=== PATIENT | female | born 1940 | race Caucasian/White ===

== ENCOUNTER 2017-11-10 11:52 | Observation (INO) ==
[2017-11-10] MEDS ORDERED: METHYLPREDNISOLONE SOD SUCC 125mg/2ml INJECTION IVP ONE (12:07)
[2017-11-10] MEDS ORDERED: ALBUTEROL/IPRATROPIUM 2.5mg-0.5mg/3ml NEB IH ONE (12:07)
--- OUTSIDE RECORDS SUMMARY | 2017-11-10 12:10 | External Medical Summary | Referral Summary ---
:1940 Author Organization [facility] Address [address] [place] [address] [place] [phone] Care Team Providers Name Role Phone Denise Ray Primary Care Physician Encounter VC Date(s): 02/25/15 - 02/25/15 [facility] [address] [place] [phone] Discharge Diagnosis: COPD bronchitis Discharge Diagnosis: Cough Discharge Disposition: 01-Home or Self Care Attending Physician: Amanda Westfall APRN Admitting Physician: Amanda Westfall APRN Vital Signs Most recent to oldest [Reference Range]: 1 Temperature Tympanic [36.6-38.1 degC] 36.5 degC *LOW* (02/25/15 11:31 AM) Peripheral Pulse Rate [60-100 bpm] 97 bpm (02/25/15 11:31 AM) Blood Pressure [90-140/60-90 mmHg] 144/82 mmHg *HI* (02/25/15 11:31 AM) SpO2 93 % (02/25/15 11:31 AM) Problem List Condition Effective Dates Status Health Status Informant Hypertension(Confirmed) Active Asthma, mild persistent(Confirmed) Active Tobacco user(Confirmed) Active patient Allergies, Adverse Reactions, Alerts No Known Medication Allergies Medications lisinopril 10 mg oral tablet 10 mg 1 tabs, Oral, Daily, # 90 tabs, 1 Refill(s), Pharmacy: [facility] # [id number], 1 tabs Oral Daily Start Date: 02/25/15 Status: OrderedProAir HFA 90 mcg/inh inhalation aerosol 2 puffs, Inhalation, q4hr, as needed for wheezing, # 8.5 g, 2 Refill(s), Pharmacy: [facility] #[id number] Start Date: 02/25/15 Status: Ordered Results No data available for this section Immunizations Vaccine Date Refusal Reason influenza virus vaccine, live 06/01/12 Procedures Procedure Date Related Diagnosis Body Site Cholecystectomy Social History Social History Type Response Smoking Status Former smoker; Type: Cigarettes; Number of years: 50; Ready to change: Yes Assessment and Plan Extracted from: Title: Ambulatory Patient Education Author: Amanda Westfall LUMBER SCALER Date: Family Medicine Bronchitis Bronchitis is swelling (inflammation ) of the air tubes leading to your lungs ( bronchi ). This causes mucus and a cough. If the swelling gets bad, you may have trouble breathing. HOME CARE Rest. Drink enough fluids to keep your pee (urine ) clear or pale yellow ( unless you have a condition where you have to watch how much you drink). Only take medicine as told by your doctor. If you were given antibiotic medicines, finish them even if you start to feel better. Avoid smoke, irritating chemicals, and strong smells. These make the problem worse. Quit smoking if you smoke. This helps your lungs heal faster. Use a cool mist humidifier. Change the water in the humidifier every day. You can also sit in the bathroom with hot shower running for 510 minutes. Keep the door closed. See your health care provider as told. Wash your hands often. GET HELP IF: Your problems do not get better after 1 week. GET HELP RIGHT AWAY IF: Your fever gets worse. You have chills. Your chest hurts. Your problems breathing get worse. You have blood in your mucus. You pass out (faint ). You feel lightheaded. You have a bad headache. You throw up (vomit ) again and again. MAKE SURE YOU: Understand these instructions. Will watch your condition. Will get help right away if you are not doing well or get worse. Document Released: 02/07/2009 Document Revised: 06/12/2014 Document Reviewed: 04/16/2014 Exit[employer] Patient Information 2014 [employer]. No follow up information was provided. Extracted from: Title: Office Visit Note Author: Amanda Westfall LUMBER SCALER Date: 02/25/15 Assessment/Plan 1.COPD bronchitis zpack, albuterol prn. let us know if s/s persist or worsen. Cough Ordered: CBC w/ Differential Orders: albuterol, 2 puffs, Inhalation, q4hr, as needed for wheezing, # 8.5 g , 2 Refill(s), Pharmacy: [facility] #[id number] azithromycin, 1 packets, Oral, Daily, as directed on package labeling, X 5 days, # 6 tabs, 0 Refill(s), Pharmacy: [facility] #[id number], 1 packets Oral Daily,x5 days,Instr:as directed on package labeling lisinopril, 10 mg 1 tabs, Oral, Daily, # 90 tabs, 1 Refill(s), Pharmacy: [facility] #[id number], 1 tabs Oral Daily
--- OUTSIDE RECORDS SUMMARY | 2017-11-10 12:10 | External Medical Summary | Referral Summary ---
:1940 Author Organization [facility] Address [address] [place] [address] [place] [phone] Care Team Providers Name Role Phone Anna Morrison Primary Care Physician Encounter VC Date(s): 07/13/16 - 07/13/16 [facility] [address] [place] [phone] [place] Discharge Diagnosis: Seasonal allergies Discharge Diagnosis: Asthma, mild persistent Discharge Disposition: 01-Home or Self Care Attending Physician: Anna Morrison DO Admitting Physician: Anna Morrison DO Vital Signs Most recent to oldest [Reference Range]: 1 Temperature Tympanic [36.6-38.1 degC] 36.6 degC (07/13/16 10:59 AM) Peripheral Pulse Rate [60-100 bpm] 86 bpm (07/13/16 10:59 AM) Blood Pressure [90-140/60-90 mmHg] 160/100 mmHg *HI* (07/13/16 10:59 AM) SpO2 94 % (07/13/16 10:59 AM) Problem List Condition Effective Dates Status Health Status Informant Overactive bladder(Confirmed) Active Hypertension(Confirmed) Active Asthma, mild persistent(Confirmed) Active Tobacco user(Confirmed) Active patient Allergies, Adverse Reactions, Alerts No Known Medication Allergies Medications Breo Ellipta 200 mcg-25 mcg/inh inhalation powder 1 puffs, Inhalation, Daily, # 3 Each, 1 Refill(s), [facility] Start Date: 12/01/15 Status: Orderedlisinopril 10 mg oral tablet See Instructions, TAKE ONE TABLET BY MOUTH DAILY, # 90 tabs, eRx: [facility] #[id number], TAKE ONETABLET BY MOUTH DAILY Start Date: 06/21/16 Status: OrderedProAir HFA 90 mcg/inh inhalation aerosol 2 puffs, Inhalation, q4hr, as needed for wheezing, # 8.5 g, 2 Refill(s), Pharmacy: [facility] #[id number] Start Date: 10/22/15 Status: Ordered Results Hematology Most recent to oldest [Reference Range]: 1 WBC [4.8-10.8 10*3/uL] 8.8 10*3/uL (07/13/16 11:26 AM) RBC [4.00-5.20] 4.69 (07/13/16 11:26 AM) Hgb [12.0-16.0 gm/dL] 14.5 gm/dL (07/13/16 11:26 AM) Hct [37.0-47.0 %] 45.0 % (07/13/16 11:26 AM) MCV [82.0-99.0 fL] 95.9 fL (07/13/16 11:26 AM) MCH [27.0-32.0 pg] 30.9 pg (07/13/16 11:26 AM) MCHC [32.0-36.0 gm/dL] 32.2 gm/dL (07/13/16 11:26 AM) RDW [11.5-14.5 %] 13.7 % (07/13/16 11:26 AM) Platelet [150-400 10*3/uL] 251 10*3/uL (07/13/16 11:26 AM) MPV [8.8-14.8 fL] 11.8 fL (07/13/16 11:26 AM) Immature Granulocytes [0.0-1.0 %] 0.2 % (07/13/16 11:26 AM) Neutrophils [51-75 %] 68 % (07/13/16 11:26 AM) Lymphocytes [20-46 %] 18 % *LOW* (07/13/16 11:26 AM) Monocytes [4-11 %] 10 % (07/13/16 11:26 AM) Eosinophils [0-4 %] 3 % (07/13/16 11:26 AM) Basophils [0-2 %] 1 % (07/13/16 11:26 AM) Neutro Absolute [1.90-7.00 10*3] 6.01 10*3 (07/13/16 11:26 AM) Lymph Absolute [0.80-3.30 10*3] 1.58 10*3 (07/13/16 11:26 AM) [place] Absolute [0.30-1.00 10*3] 0.89 10*3 (07/13/16 11:26 AM) Eos Absolute [0.00-0.50 10*3] 0.25 10*3 (07/13/16 11:26 AM) Baso Absolute [0.00-0.20 10*3] 0.06 10*3 (07/13/16 11:26 AM) Chemistry Most recent to oldest [Reference Range]: 1 Sodium Lvl [135-144 mEq/L] 142 mEq/L (07/13/16 11:26 AM) Potassium Lvl [3.5-5.2 mEq/L] 4.5 mEq/L (07/13/16 11:26 AM) Chloride [99-111 mEq/L] 106 mEq/L (07/13/16 11:26 AM) CO2 [22-31 mEq/L] 30 mEq/L (07/13/16 11:26 AM) AGAP [3-20] 6 (07/13/16 11:26 AM) BUN [10-20 mg/dL] 16 mg/dL (07/13/16 11:26 AM) Glucose Lvl [70-99 mg/dL] 75 mg/dL (07/13/16 11:26 AM) Creatinine Lvl [0.57-1.11 mg/dL] 0.75 mg/dL (07/13/16 11:26 AM) eGFR [>60 mL/min] >60 mL/min 1 (07/13/16 11:26 AM) Calcium Lvl [8.9-10.5 mg/dL] 9.0 mg/dL (07/13/16 11:26 AM) 1Result Comment: Multiply eGFR results by 1.21 for race. Immunizations Vaccine Date Refusal Reason influenza virus vaccine, inactivated 07/13/16 influenza virus vaccine, live 06/01/12 pneumococcal 13-valent conjugate vaccine 10/22/15 pneumococcal 23-polyvalent vaccine 09/27/11 pneumococcal 23-polyvalent vaccine 06/30/06 Procedures Procedure Date Related Diagnosis Body Site Cholecystectomy 2013 Social History Social History Type Response Smoking Status Former smoker; Type: Cigarettes; Number of years: 50; Ready to change: Yes Assessment and Plan Extracted from: Title: Office Visit Note Author: Anna Morrison DO Date: 07/13/16 Assessment/Plan Asthma, mild persistent Stable at this time Ordered: Office Visit Level 4 Est 05799 Hypertension BMP and CBC today,patient should return to clinic in 6 months if still living in [place]. Ordered: Basic Metabolic Panel CBC w/ Differential Office Visit Level 4 Est 32285 Need for influenza vaccination Flu shot provided today. Ordered: Office Visit Level 4 Est 41086 Seasonal allergies Stable at this time, patient should return to clinic if worsening symptoms. Ordered: Office Visit Level 4 Est 94551
--- OUTSIDE RECORDS SUMMARY | 2017-11-10 12:10 | External Medical Summary | Referral Summary ---
:1940 Author [facility] Address [address] [place] [address] [place] [phone] Care Team Providers Name Role Phone Anna Morrison Primary Care Physician Encounter VC Date(s): 10/22/15 - 10/22/15 [facility] [address] [place] [phone] [place] Discharge Disposition: 01-Home or Self Care Attending Physician: Deacon Van APRN Admitting Physician: Deacon Van APRN Vital Signs Most recent to oldest [Reference Range]: 1 Temperature Tympanic [36.6-38.1 degC] 36.3 degC *LOW* (10/22/15 9:33 AM) Peripheral Pulse Rate [60-100 bpm] 96 bpm (10/22/15 9:33 AM) Respiratory Rate [14-20 br/min] 21 br/min *HI* (10/22/15 9:33 AM) Blood Pressure [90-140/60-90 mmHg] 168/84 mmHg *HI* (10/22/15 9:33 AM) SpO2 92 % (10/22/15 9:33 AM) Problem List Condition Effective Dates Status Health Status Informant Overactive bladder(Confirmed) Active Hypertension(Confirmed) Active Asthma, mild persistent(Confirmed) Active Tobacco user(Confirmed) Active patient Allergies, Adverse Reactions, Alerts No Known Medication Allergies Medications lisinopril 10 mg oral tablet 10 mg 1 tabs, Oral, Daily, # 90 tabs, 0 Refill(s), Pharmacy: [facility] # [id number], 1 tabs Oral Daily Start Date: 10/22/15 Status: OrderedProAir HFA 90 mcg/inh inhalation aerosol 2 puffs, Inhalation, q4hr, as needed for wheezing, # 8.5 g, 2 Refill(s), Pharmacy: [facility] #[id number] Start Date: 10/22/15 Status: Ordered Results No data available for this section Immunizations Vaccine Date Refusal Reason influenza virus vaccine, live 06/01/12 pneumococcal 13-valent conjugate vaccine 10/22/15 pneumococcal 23-polyvalent vaccine 09/27/11 pneumococcal 23-polyvalent vaccine 06/30/06 Procedures Procedure Date Related Diagnosis Body Site Cholecystectomy 2012 Social History Social History Type Response Smoking Status Former smoker; Type: Cigarettes; Number of years: 50; Ready to change: Yes Assessment and Plan No data available for this section
--- OUTSIDE RECORDS SUMMARY | 2017-11-10 12:10 | External Medical Summary | Referral Summary ---
:1940 Author [facility] Address [address] [place] [address] [place] [address] Care Team Providers Name Role Phone Anna Morrison Primary Care Physician Encounter VC Date(s): 10/13/16 - 10/13/16 [facility] [address] [place] [phone] [place] Discharge Diagnosis: Acute respiratory failure with hypoxia Discharge Disposition: 01-Home or Self Care Attending Physician: Anna Morrison DO Admitting Physician: Anna Morrison DO Vital Signs Most recent to oldest [Reference Range]: 1 Temperature Tympanic [36.6-38.1 degC] 36.4 degC *LOW* (10/13/16 3:53 PM) Peripheral Pulse Rate [60-100 bpm] 112 bpm *HI* (10/13/16 3:53 PM) Blood Pressure [90-140/60-90 mmHg] 140/80 mmHg (10/13/16 3:53 PM) Problem List Condition Effective Dates Status Health Status Informant Overactive bladder(Confirmed) Active Hypertension(Confirmed) Active Asthma, mild persistent(Confirmed) Active Tobacco user(Confirmed) Active patient Allergies, Adverse Reactions, Alerts No Known Medication Allergies Medications DuoNeb 0.5 mg-2.5 mg/3 mL inhalation solution 3 mL, NEB, q4hr, as needed for shortness of breath or wheezing, # 180 mL, 0 Refill(s), Pharmacy: [facility] #[id number] Start Date: 10/04/16 Status: Orderedlisinopril 10 mg oral tablet See Instructions, TAKE ONE TABLET BY MOUTH DAILY, # 90 tabs, eRx: [facility] #[id number], TAKE ONETABLET BY MOUTH DAILY Start Date: 09/22/16 Status: OrderedProAir HFA 90 mcg/inh inhalation aerosol See Instructions, INHALE TWO PUFFS BY MOUTH EVERY 4 HOURS NEEDED, # 8.5 unknown unit, 1 Refill(s), eRx: [facility] #[id number], INHALE TWO PUFFS BY MOUTH EVERY 4 HOURS NEEDED Start Date: 09/30/16 Status: Ordered Results No data available for this section Immunizations Given and Recorded Vaccine Date Status Refusal Reason influenza virus vaccine, inactivated 07/13/16 Given influenza virus vaccine, live 06/01/12 Given pneumococcal 13-valent conjugate vaccine 10/22/15 Given pneumococcal 23-polyvalent vaccine 09/27/11 Recorded pneumococcal 23-polyvalent vaccine 06/30/06 Recorded Procedures Procedure Date Related Diagnosis Body Site Cholecystectomy 2012 Social History Social History Type Response Smoking Status Former smoker; Type: Cigarettes; Number of years: 50; Ready to change: Yes Assessment and Plan Extracted from: Title: Office Visit Note Author: Anna Morrison DO Date: 10/13/16 Assessment/Plan Acute respiratory failure with hypoxia Due to patient's respiratory failure we activated EMSto have the patient taken to the emergency department. Ordered: Office Visit Level 4 Est 56162
--- OUTSIDE RECORDS SUMMARY | 2017-11-10 12:10 | External Medical Summary | Referral Summary ---
:1940 Author Organization [facility] [address] [place] [address] Care Team Providers Name Role Phone Anna Morrison Primary Care Physician Encounter VC Date(s): 10/29/16 - 10/29/16 [facility] [address] [place] [phone] [place] Discharge Diagnosis: Dependence on supplemental oxygen when ambulating Discharge Diagnosis: Hospital discharge follow-up Discharge Diagnosis: Acute exacerbation of COPD with asthma Discharge Disposition: -Home or Self Care Attending Physician: Anna Morrison DO Admitting Physician: Anna Morrison DO Vital Signs Most recent to oldest [Reference Range]: 1 Temperature Tympanic [36.6-38.1 degC] 36.9 degC (10/29/16 8:02 AM) Peripheral Pulse Rate [60-100 bpm] 88 bpm (10/29/16 8:02 AM) Respiratory Rate [14-20 br/min] 16 br/min (10/29/16 8:02 AM) Blood Pressure [90-140/60-90 mmHg] 128/60 mmHg (10/29/16 8:02 AM) SpO2 94 % (10/29/16 8:02 AM) Problem List Condition Effective Dates Status Health Status Informant Overactive bladder(Confirmed) Active Dependence on supplemental oxygen when Active ambulating(Confirmed) Acute exacerbation of COPD with Active asthma(Confirmed) Hypertension(Confirmed) Active Asthma, mild persistent(Confirmed) Active Tobacco user(Confirmed) Active patient Allergies, Adverse Reactions, Alerts No Known Medication Allergies Medications DuoNeb 0.5 mg-2.5 mg/3 mL inhalation solution 3 mL, NEB, q4hr, as needed for shortness of breath or wheezing, # 180 mL, 0 Refill(s), Pharmacy: [facility] #[id number] Start Date: 10/04/16 Status: Orderedlisinopril 10 mg oral tablet See Instructions, TAKE ONE TABLET BY MOUTH DAILY, # 90 tabs, eRx: [facility] #[id number], TAKE ONETABLET BY MOUTH DAILY Start Date: 09/22/16 Status: OrderedProAir HFA 90 mcg/inh inhalation aerosol See Instructions, INHALE TWO PUFFS BY MOUTH EVERY 4 HOURS NEEDED, # 8.5 unknown unit, 1 Refill(s), eRx: [facility] #[id number], INHALE TWO PUFFS BY MOUTH EVERY 4 [...] Yes Assessment and Plan Extracted from: Title: TCM copd Author: Anna Morrison DO Date: 10/29/16 Assessment/Plan Acute exacerbation of COPD with asthma Ordered: [facility] 14 Day Disch 29575 Dependence on supplemental oxygen when ambulating Ordered: [facility] 14 Day Disch [address]2385 Hospital discharge follow-up Ordered: [facility] 14 Day Disch 97823 Overall patient is doing well. She is careful in public to avoid exposure to any respiratory illnesses. She continues to monitor her oxygen saturation and use her supplemental oxygen as needed.
--- OUTSIDE RECORDS SUMMARY | 2017-11-10 12:10 | External Medical Summary | Referral Summary ---
:1940 Author [facility] Address [address] [place] [address] [place] [phone] Care Team Providers Name Role Phone Anna Morrison Primary Care Physician Encounter VC Date(s): 10/04/16 - 10/04/16 [facility] [address] [place] [phone] [place] Discharge Diagnosis: Viral URI with cough Discharge Diagnosis: Acute asthma exacerbation Discharge Disposition: 01-Home or Self Care Attending Physician: Anna Morrison DO Admitting Physician: Anna Morrison DO Vital Signs Most recent to oldest [Reference Range]: 1 Temperature Tympanic [36.6-38.1 degC] 36.2 degC *LOW* (10/04/16 8:51 AM) Peripheral Pulse Rate [60-100 bpm] 94 bpm (10/04/16 8:51 AM) Blood Pressure [90-140/60-90 mmHg] 160/90 mmHg *HI* (10/04/16 8:51 AM) SpO2 94 % (10/04/16 8:51 AM) Problem List Condition Effective Dates Status Health Status Informant Overactive bladder(Confirmed) Active Hypertension(Confirmed) Active Asthma, mild persistent(Confirmed) Active Tobacco user(Confirmed) Active patient Allergies, Adverse Reactions, Alerts No Known Medication Allergies Medications Breo Ellipta 200 mcg-25 mcg/inh inhalation powder 1 puffs, Inhalation, Daily, # 3 Each, 1 Refill(s), Pharmacy: [facility] Start Date: 12/01/15 Status: OrderedDuoNeb 0.5 mg-2.5 mg/3 mL inhalation solution 3 mL, NEB, q4hr, as needed for shortness of breath or wheezing, # 180 mL, 0 Refill(s), Pharmacy: [facility] #[id number] Start Date: 10/04/16 Status: Orderedlisinopril 10 mg oral tablet See Instructions, TAKE ONE TABLET BY MOUTH DAILY, # 90 tabs, eRx: [facility] #[id number], TAKE ONETABLET BY MOUTH DAILY Start Date: 09/22/16 Status: OrderedProAir HFA 90 mcg/inh inhalation aerosol See Instructions, INHALE TWO PUFFS BY MOUTH EVERY 4 HOURS NEEDED, # 8.5 unknown unit, 1 Refill(s), eRx: [facility] #[id number], INHALE TWO PUFFS BY MOUTH EVERY 4 [...] Yes Assessment and Plan Extracted from: Title: ACUTE asthma exac Author: Anna Morrison DO Date: 10/04/16 Assessment/Plan Acute asthma exacerbation Ordered: Office Visit Level 4 Est 64981 Cough Viral URI with cough Ordered: Office Visit Level 4 Est 22583 Chest x-ray shows inflammatory changes, lung exam is improved after nebulizer treatment with DuoNeb. We will provide patient with nebulizer and some DuoNeb solution as well as a Solu-Medrol injectio n. Patient should return to clinic if not improving. Otherwise patient should continue supportive care.
--- OUTSIDE RECORDS SUMMARY | 2017-11-10 12:11 | External Medical Summary | Referral Summary ---
:1940 Author [facility] [place] Address [address] [place] [address] [place] [phone] Care Team Providers Name Role Phone Anna Morrison Primary Care Physician Encounter VC Date(s): 11/26/15 - 11/26/15 [facility] [address] [place] [phone] [place] Discharge Disposition: 01-Home or Self Care Attending Physician: Deacon Van APRN Admitting Physician: Deacon Van APRN Vital Signs Most recent to oldest [Reference Range]: 1 Temperature Tympanic [36.6-38.1 degC] 36.2 degC *LOW* (11/26/15 1:16 PM) Peripheral Pulse Rate [60-100 bpm] 100 bpm (11/26/15 1:16 PM) Respiratory Rate [14-20 br/min] 20 br/min (11/26/15 1:16 PM) Blood Pressure [90-140/60-90 mmHg] 138/98 mmHg (11/26/15 1:16 PM) SpO2 92 % (11/26/15 1:16 PM) Problem List Condition Effective Dates Status Health Status Informant Overactive bladder(Confirmed) Active Hypertension(Confirmed) Active Asthma, mild persistent(Confirmed) Active Tobacco user(Confirmed) Active patient Allergies, Adverse Reactions, Alerts No Known Medication Allergies Medications Levaquin 500 mg oral tablet 500 mg 1 tabs, Oral, q24hr, X 7 days, # 7 tabs, 0 Refill(s), Pharmacy: [facility] #[id number], 1 tabs Oral q24hr,x7 days Start Date: 11/26/15 Stop Date: 12/03/15 Status: Orderedlisinopril 10 mg oral tablet 10 mg 1 tabs, Oral, Daily, # 90 tabs, 0 Refill(s), Pharmacy: [facility] # [id number], 1 tabs Oral Daily Start Date: 10/22/15 Status: OrderedpredniSONE 20 mg oral tablet See Instructions, 2 tabs PO daily for 4 days then 1 tab PO daily for 4 days, # 12 tabs, 0 Refill(s),Pharmacy: [facility] #[id number], 2 tabs PO daily for 4 days then 1 tab PO daily for 4 days Start Date: 11/26/15 Stop Date: 12/03/15 Status: OrderedProAir HFA 90 mcg/inh inhalation aerosol 2 puffs, Inhalation, q4hr, as needed for wheezing, # 8.5 g, 2 Refill(s), Pharmacy: [facility] #[id number] Start Date: 10/22/15 Status: Ordered Results No [...]
--- OUTSIDE RECORDS SUMMARY | 2017-11-10 12:11 | External Medical Summary | Referral Summary ---
:1940 Author Organization [facility] Address [address] [place] [address] E[place] Bec[place] [id number] Care Team Providers Name Role Phone Denise Ray Primary Care Physician Encounter VC Date(s): 01/31/15 - 01/31/15 [facility] [place] [phone] Discharge Diagnosis: Neck pain Discharge Diagnosis: HTN (hypertension) Discharge Diagnosis: Back pain Discharge Disposition: 01-Home or Self Care Attending Physician: Amanda Westfall APRN Admitting Physician: Amanda Westfall APRN Vital Signs Most recent to oldest [Reference Range]: 1 Temperature Tympanic [36.6-38.1 degC] 36.7 degC (01/31/15 1:15 PM) Peripheral Pulse Rate [60-100 bpm] 80 bpm (01/31/15 1:15 PM) Respiratory Rate [14-20 br/min] 17 br/min (01/31/15 1:15 PM) Blood Pressure [90-140/60-90 mmHg] 190/70 mmHg *HI* (01/31/15 1:15 PM) Problem List Condition Effective Dates Status Health Status Informant Hypertension(Confirmed) Active Asthma, mild persistent(Confirmed) Active Tobacco user(Confirmed) Active patient Allergies, Adverse Reactions, Alerts No Known Medication Allergies Medications lisinopril 10 mg oral tablet 10 mg 1 tabs, Oral, Daily, # 90 tabs, 1 Refill(s), Pharmacy: [facility] # [id number], 1 tabs Oral Daily Start Date: 02/25/15 Status: OrderedProAir HFA 90 mcg/inh inhalation aerosol 2 puffs, Inhalation, q4hr, as needed for wheezing, # 8.5 g, 2 Refill(s), Pharmacy: [facility] #[id number] Start Date: 02/25/15 Status: Ordered Results Hematology Most recent to oldest [Reference Range]: 1 WBC [4.8-10.8 10*3/uL] 8.8 10*3/uL (01/31/15 2:05 PM) RBC [4.00-5.20 10*6/uL] 4.45 10*6/uL (01/31/15 2:05 PM) Hgb [12.0-16.0 gm/dL] 13.7 gm/dL (01/31/15 2:05 PM) Hct [37.0-47.0 %] 42.4 % (01/31/15 2:05 PM) MCV [82.0-99.0 fL] 95.3 fL (01/31/15 2:05 PM) MCH [27.0-32.0 pg] 30.8 pg (01/31/15 2:05 PM) MCHC [32.0-36.0 gm/dL] 32.3 gm/dL (01/31/15 2:05 PM) RDW [11.5-14.5 %] 13.1 % (01/31/15 2:05 PM) Platelet [150-400 10*3/uL] 287 10*3/uL (01/31/15 2:05 PM) MPV [8.8-14.8 fL] 11.2 fL (01/31/15 2:05 PM) Immature Granulocytes [0.0-1.0 %] 0.3 % (01/31/15 2:05 PM) Neutrophils [51-75 %] 65 % (01/31/15 2:05 PM) Lymphocytes [20-46 %] 21 % (01/31/15 2:05 PM) Monocytes [4-11 %] 11 % (01/31/15 2:05 PM) Eosinophils [0-4 %] 2 % (01/31/15 2:05 PM) Basophils [0-2 %] 1 % (01/31/15 2:05 PM) Neutro Absolute [1.90-7.00 10*3] 5.69 10*3 (01/31/15 2:05 PM) Lymph Absolute [0.80-3.30 10*3] 1.80 10*3 (01/31/15 2:05 PM) Beckham Absolute [0.30-1.00 10*3] 0.97 10*3 (01/31/15 2:05 PM) Eos Absolute [0.00-0.50 10*3] 0.21 10*3 (01/31/15 2:05 PM) Baso Absolute [0.00-0.20 10*3] 0.07 10*3 (01/31/15 2:05 PM) Chemistry Most recent to oldest [Reference Range]: 1 Sodium Lvl [135-144 mEq/L] 140 mEq/L (01/31/15 2:05 PM) Potassium Lvl [3.5-5.2 mEq/L] 4.2 mEq/L (01/31/15 2:05 PM) Chloride [99-111 mEq/L] 108 mEq/L (01/31/15 2:05 PM) CO2 [22-31 mEq/L] 23 mEq/L (01/31/15 2:05 PM) AGAP [3-20] 9 (01/31/15 2:05 PM) BUN [10-20 mg/dL] 11 mg/dL (01/31/15 2:05 PM) Glucose Lvl [70-99 mg/dL] 100 mg/dL *HI* (01/31/15 2:05 PM) Creatinine Lvl [0.57-1.11 mg/dL] 0.72 mg/dL (01/31/15 2:05 PM) eGFR [>60 mL/min] >60 mL/min 1 (01/31/15 2:05 PM) Calcium Lvl [8.9-10.5 mg/dL] 9.6 mg/dL (01/31/15 2:05 PM) Albumin Lvl [3.4-4.8 gm/dL] 4.1 gm/dL (01/31/15 2:05 PM) Total Protein [6.2-8.1 gm/dL] 6.4 gm/dL (01/31/15 2:05 PM) Globulin [1.8-4.0 gm/dL] 2.3 gm/dL (01/31/15 2:05 PM) ALT [0-55 U/L] 13 U/L (01/31/15 2:05 PM) AST [5-34 U/L] 14 U/L (01/31/15 2:05 PM) Alk Phos [40-150 U/L] 135 U/L (01/31/15 2:05 PM) Bili Total [0.2-1.2 mg/dL] 0.3 mg/dL (01/31/15 2:05 PM) 1Result Comment: Multiply eGFR results by 1.21 for race. Immunizations Vaccine Date Refusal Reason influenza virus vaccine, live 06/01/12 Procedures Procedure Date Related Diagnosis Body Site Cholecystectomy Social History Social History Type Response Smoking Status Former smoker; Type: Cigarettes; Number of years: 50; Ready to change: Yes Assessment and Plan Extracted from: Title: Ambulatory Patient Education Author: Amanda Westfall APRN Date: Family Medicine Hypertension Hypertension is another name for high blood pressure. High blood pressure may mean that your heart needs to work harder to pump blood. Blood pressure consists of two numbers, which includes a higher number over a lower number ( example: 110/72). HOME CARE Make lifestyle changes as told by your doctor. This may include weight loss and exercise. Take your blood pressure medicine every day. Limit how much salt you use. Stop smoking if you smoke. Do not use drugs. Talk to your doctor if you are using decongestants or control pills. These medicines might make blood pressure higher. Females should not drink more than 1 alcoholic drink per day. Males should not drink more than 2 alcoholic drinks per day. See your doctor as told. GET HELP RIGHT AWAY IF: You have a blood pressure reading with a top number of 180 or higher. You get a very bad headache. You get blurred or changing vision. You feel confused. You feel weak, numb, or faint. You get chest or belly (abdominal ) pain. You throw up (vomit ). You cannot breathe very well. MAKE SURE YOU: Understand these instructions. Will watch your condition. Will get help right away if you are not doing well or get worse. Document Released: 02/07/2009 Document Revised: 11/13/2012 Document Reviewed: 02/07/2009 [facility] Patient Information 2014 [employer] [facility]. No follow up information was provided. Extracted from: Title: Office Visit Note Author: Amanda Westfall APRN Date: 01/31/15 Assessment/Plan Back pain we will call you with results. Ordered: XR Spine Lumbosacral Minimum 4 Views HTN (hypertension) start lisinopril 10mg daily. rtc in 1 mo. Ordered: CBC w/ Differential Comprehensive Metabolic Panel Neck pain Ordered: XR Spine Cervical Minimum 4 Views Orders: lisinopril, 10 mg 1 tabs, Oral, Daily, # 30 tabs, 0 Refill(s), Pharmacy: [facility] #[id number], 1 tabs Oral Daily
--- OUTSIDE RECORDS SUMMARY | 2017-11-10 12:11 | External Medical Summary | Referral Summary ---
:1940 [facility] Address [address] [place] [address] [place] [id number] Care Team Providers Name Role Phone Denise Ray Primary Care Physician Encounter VC Date(s): 07/09/15 - 07/09/15 [facility] [place] [phone] [place] Discharge Diagnosis: Hypertension Discharge Diagnosis: Asthma, mild persistent Discharge Disposition: 01-Home or Self Care Attending Physician: Anna Morrison DO Admitting Physician: Anna Morrison DO Vital Signs Most recent to oldest [Reference Range]: 1 Temperature Tympanic [36.6-38.1 degC] 36.8 degC (07/09/15 9:43 AM) Peripheral Pulse Rate [60-100 bpm] 101 bpm *HI* (07/09/15 9:43 AM) Respiratory Rate [14-20 br/min] 17 br/min (07/09/15 9:43 AM) Blood Pressure [90-140/60-90 mmHg] 148/80 mmHg *HI* (07/09/15 9:43 AM) SpO2 93 % (07/09/15 9:43 AM) Problem List Condition Effective Dates Status Health Status Informant Hypertension(Confirmed) Active Asthma, mild persistent(Confirmed) Active Tobacco user(Confirmed) Active patient Allergies, Adverse Reactions, Alerts No Known Medication Allergies Medications lisinopril 10 mg oral tablet 10 mg 1 tabs, Oral, Daily, # 90 tabs, 1 Refill(s), Pharmacy: [facility] # [id number], 1 tabs Oral Daily Start Date: 02/25/15 Status: OrderedProAir HFA 90 mcg/inh inhalation aerosol 2 puffs, Inhalation, q4hr, as needed for wheezing, # 8.5 g, 2 Refill(s), Pharmacy: [facility] #[id number] Start Date: 02/25/15 Status: Ordered Results No [...] Visit Note Author: Anna Morrison DO Date: 07/09/15 Assessment/Plan Asthma, mild persistent Well-controlled with rescue inhaler. Return to clinic 6 months. Ordered: Office Visit Level 4 Est 68100 Hypertension Well-controlled according to home readings. Return to clinic 6 months. We'll do labs at that time. Ordered: Office Visit Level 4 Est 12132
--- NOTE | 2017-11-10 12:14 | Emergency Department Report ---
Asthma HPI - General Stated Complaint: soa Time Seen by Provider: 11/10/17 12:00 Source: patient, family, RN notes reviewed, old records reviewed Mode of arrival: ambulatory Limitations: no limitations - History of Present Illness HPI Narrative: 77yo woman presents to the ER for evaluation of dyspnea. Pt developed URI sx 2 week ago; has gotten progressively dyspneic ever since. Has been using her home albuterol nebs > q4h without relief. Presents to the ER on 5L by [place] with her home O2 and SaO2 is reliably in the 80s. Son presents with pt; has been trying to get her to be seen throughout this episode. Pt quit smoking 5yrs ago, but continues to sneak a cigaret here and there. Per the son, pt does not take great care of herself at baseline. MD complaint: shortness of breath Onset (ago): week(s) (2) Severity: severe Context: recent URI Associated symptoms: productive cough Asthma History: childhood onset Treatments Prior to Arrival: inhaled bronchodilator - Related Data Current Asthma Therapy: inhaled bronchodilator Home Medications Medication Instructions Recorded Confirmed Albuterol Sulfate [Proair Hfa] 2 puff INH Q4H PRN 11/10/17 11/10/17 Furosemide [Lasix] 40 mg PO DAILY PRN 11/10/17 11/10/17 Lisinopril [Prinivil] 5 mg PO DAILY 11/10/17 11/10/17 Montelukast [Singulair] 10 mg PO DAILY 11/10/17 11/10/17 Pravastatin [Pravachol] 40 mg PO DAILY 11/10/17 11/10/17 Allergies Allergy/AdvReac Type Severity Reaction Status Date / Time No Known Allergies Allergy Verified 11/10/17 12:45 Review of Systems All systems: reviewed and negative except as stated Respiratory: Reports: as per HPI, cough, dyspnea, wheezes. Denies: hemoptysis, stridor PFSH Patient Stated Medical History Hypertension Yes Other Cardiology Yes: diastolic heart failure Asthma Yes Chronic Obstructive Pulmonary Yes Disease (COPD) Medical History Updates: HTN. Asthma - Social History Smoking status: Current some day smoker Physical Exam - Limitations Limitations: no limitations - General General appearance: alert, in distress (Respiratory), cachectic - Normal Exams: Head:: Normocephalic without trauma Eyes:: Pupils are PERRLA w/ EOMI, No scleral icterus, irritation, or foreign bodies noted ENMT:: No facial trauma, nasal exudates, pharyngeal erythema, or exudates are noted Neck:: Full range of motion, without adenopathy Lymphatic:: No lymphadenopathy Musculoskeletal:: No tenderness, or deformity noted Integumentary:: No rashes, hives, or bruising noted Neurological:: Patient is alert, and oriented Psychiatric:: Patient exhibits, appropriate attention - Chest Chest inspection: Present: normal inspection, symmetric chest wall rise. Absent : tenderness, rash - Respiratory Respiratory exam: Present: wheezes. Absent: normal lung sounds bilaterally ( Decreased air movement throughout), respiratory distress, stridor, prolonged expiratory phase, crackles - Cardiovascular Cardiovascular exam: Present: regular rate, normal rhythm, normal heart sounds, +S1, +S2. Absent: systolic murmur, diastolic murmur, rubs, gallop, clicks, +S3 , +S4 Course - Consultations Consultation #1: Hospitalist: Will eval pt for possible admission. Time: 13:29 Vital Signs Temperature 98.0 F 11/10/17 12:00 Pulse Rate 112 H 11/10/17 12:00 Respiratory Rate 32 H 11/10/17 12:00 Blood Pressure 153/91 H 11/10/17 12:00 Pulse Oximetry 75 L 11/10/17 12:00 Temperature 98.0 F 11/10/17 12:00 Pulse Rate 114 H 11/10/17 14:07 Respiratory Rate 20 11/10/17 14:07 Blood Pressure 136/68 11/10/17 13:38 Pulse Oximetry 92 11/10/17 14:07 Dyspnea - MDM Narrative Medical decision making narrative: Pt with persistent tachypnea and hypoxia without O2 at (at least) 4L. Hospitalist contacted for admission. Will admit for obs and improvement in sx. - Differential Diagnosis Differential diagnosis: Likely: Acute exacerbation, Pneumonia, COPD exacerbation , Pulmonary edema systolic, Pulmonary edema dystolic, Pneumothorax - Medical Records Attestation: I reviewed the patient's medical records. - Lab Data Attestation: I reviewed the patient's lab results. Result diagrams: 11/10/17 12:22 11/10/17 12:22 Lab Results 11/10/17 11/10/17 11/10/17 Range/Units 12:22 12:22 12:22 WBC 11.3 H (4.5-11.0) T/MM3 RBC 4.41 (4.00-5.20) M/MM3 Hgb 13.6 (12-16) GM/DL Hct 43.0 (36-46) % MCV 97.5 (80-100) UM3 MCH 30.8 (26-34) UUG MCHC 31.6 (31-37) GM/DL RDW Std Deviation 46.3 (36.9-50.2) FL Plt Count 270 (130-400) T/MM3 MPV 10.9 (9.4-12.4) UM3 Immature Gran % (Auto) 0.1 (0.0-0.5) % Neut % (Auto) 80.2 H (33-66) % Lymph % (Auto) 7.7 L (23-45) % Bladen % (Auto) 5.5 (0-9.0) % Eos % (Auto) 6.0 H (0-4) % Baso % (Auto) 0.5 (0-2) % Neut # (Auto) 9.1 H (1.8-7.7) T/MM3 Lymph # (Auto) 0.9 L (1-4.8) T/MM3 Bladen # (Auto) 0.6 (0-0.8) T/MM3 Eos # (Auto) 0.7 H (0-0.5) T/MM3 Baso # (Auto) 0.1 (0-0.2) T/MM3 Abs Immat Gran (auto) 0.01 (0.00-0.03) T/MM3 ABG pH (7.350-7.450) ABG pCO2 (34.0-45.0) MMHG ABG pO2 (80.0-100.0) MMHG ABG HCO3 (22.0-26.0) MEQ/L ABG Total CO2 (23.0-27.0) MEQ/L ABG O2 Saturation (95.0-98.0) % ABG Base Excess (-2.0-2.0) MMOL/L Turbidity < 20 (0-20) Sodium 143 (134-144) MEQ/L Potassium 4.4 (3.6-5) MEQ/L Chloride 102 (98-107) MEQ/L Carbon Dioxide 29 (22-30) MEQ/L Anion Gap 12 (5-15) MEQ/L BUN 16.0 (7-17) MG/DL Creatinine 0.7 (0.7-1.2) mg/dL GFR Calculation 82 BUN/Creatinine Ratio 23 (6-26) RATIO Glucose 113 H (65-110) MG/DL Calculated Osmolality 277 (261-280) MOSM/KG Calcium 9.6 (8.4-10.2) MG/DL Icterus Index < 2 (0-7) Troponin I (0-0.12) ng/ml NT-Pro-B Natriuret Pep (0-175) pg/mL Specimen Hemolysis < 15 (0-25) Influenza Type A (PCR) Negative (Negative) Influenza Type B (PCR) Negative (Negative) 11/10/17 11/10/17 Range/Units 12:22 13:23 WBC (4.5-11.0) T/MM3 RBC (4.00-5.20) M/MM3 Hgb (12-16) GM/DL Hct (36-46) % MCV (80-100) UM3 MCH (26-34) UUG MCHC (31-37) GM/DL RDW Std Deviation (36.9-50.2) FL Plt Count (130-400) T/MM3 MPV (9.4-12.4) UM3 Immature Gran % (Auto) (0.0-0.5) % Neut % (Auto) (33-66) % Lymph % (Auto) (23-45) % Bladen % (Auto) (0-9.0) % Eos % (Auto) (0-4) % Baso % (Auto) (0-2) % Neut # (Auto) (1.8-7.7) T/MM3 Lymph # (Auto) (1-4.8) T/MM3 Bladen # (Auto) (0-0.8) T/MM3 Eos # (Auto) (0-0.5) T/MM3 Baso # (Auto) (0-0.2) T/MM3 Abs Immat Gran (auto) (0.00-0.03) T/MM3 ABG pH 7.350 (7.350-7.450) ABG pCO2 54 H (34.0-45.0) MMHG ABG pO2 78.3 L (80.0-100.0) MMHG ABG HCO3 29.6 H (22.0-26.0) MEQ/L ABG Total CO2 31.3 H (23.0-27.0) MEQ/L ABG O2 Saturation 94.5 L (95.0-98.0) % ABG Base Excess 2.7 H (-2.0-2.0) MMOL/L Turbidity (0-20) Sodium (134-144) MEQ/L Potassium (3.6-5) MEQ/L Chloride (98-107) MEQ/L Carbon Dioxide (22-30) MEQ/L Anion Gap (5-15) MEQ/L BUN (7-17) MG/DL Creatinine (0.7-1.2) mg/dL GFR Calculation BUN/Creatinine Ratio (6-26) RATIO Glucose (65-110) MG/DL Calculated Osmolality (261-280) MOSM/KG Calcium (8.4-10.2) MG/DL Icterus Index (0-7) Troponin I < 0.012 (0-0.12) ng/ml NT-Pro-B Natriuret Pep 131 (0-175) pg/mL Specimen Hemolysis < 15 (0-25) Influenza Type A (PCR) (Negative) Influenza Type B (PCR) (Negative) - Radiology Data Attestation: I reviewed the patient's radiology results. CXR: Stable appearance of the chest without acute cardiopulmonary disease. - EKG Data EKG #1 EKG attestation: Yes: I reviewed and interpreted this EKG. EKG shows normal: sinus rhythm, axis, intervals, QRS complexes, ST-T waves Rate [ED.COU.EKR]: tachycardia Disposition Clinical Impression: Acute exacerbation of chronic obstructive airways disease [place] [facility] [place] Prescriptions: No Action Lisinopril [Prinivil] 5 mg PO DAILY Montelukast [Singulair] 10 mg PO DAILY Albuterol Sulfate [Proair Hfa] 2 puff INH Q4H PRN PRN Reason: Prn Orders Pravastatin [Pravachol] 40 mg PO DAILY Furosemide [Lasix] 40 mg PO DAILY PRN PRN Reason: Prn Orders Referrals: Anna Morrison DO [Family Provider] - Time of Disposition: 14:39 - Seen By: physician
[2017-11-10] MEDS: SALINE FLUSH 10ml SYRINGE IVF PRN ×2 (12:20→23:32)
--- NOTE | 2017-11-10 13:10 | XRay Report ---
INDICATION: Dyspnea PROCEDURE: CHEST 2-VIEWS UPRIGHT (PA & LAT) Encounter: Initial Comparison: October 13, 2016 Findings: The lungs are stable in appearance without new focal airspace consolidation. Hyperinflation and emphysema. There is no pleural effusion or pneumothorax. The heart size, pulmonary vascularity and mediastinal contours are unchanged. IMPRESSION: Stable appearance of the chest without acute cardiopulmonary disease. .
[2017-11-10] MEDS ORDERED: KETOROLAC 30 MG/ML INJECTION IVP ONE (13:28)
[2017-11-10] MEDS ORDERED: ALBUTEROL/IPRATROPIUM 2.5mg-0.5mg/3ml NEB AEROSOL ONE (14:40)
[2017-11-10] MEDS ORDERED: ALBUTEROL/IPRATROPIUM 2.5mg-0.5mg/3ml NEB AEROSOL PRN (15:23)
--- NOTE | 2017-11-10 15:40 | History & Physical Report ---
History of Present Illness Date: 11/10/17 Chief complaint: shortness of breath HPI: This is 77-year-old woman who maintains on 2 L at home and is on monotherapy of albuterol. For the last 5 or 6 days she has had increased shortness of breath with some clear productive sputum but no no fevers chills nausea vomiting or malaise. She turned her oxygen up to 4 or 5 L. She just feels that her airway has gotten more and more restrictive. She's been using her breathing treatments more than the every 4 hours that she is supposed to but says that she only gets relief for about 30 minutes using them. And has urged her to come in several times but she has refused for several days until now Review of Systems - Constitutional Constitutional: Absent: anorexia, chills, fever(s), malaise, weakness - EENMT Eyes: Absent: blurry vision, diplopia Mouth/Throat: Absent: sore throat, scratchy throat - Cardiovascular Cardiovascular: Present: dyspnea on exertion. Absent: chest pain Vascular: Absent: intermittent claudication, pedal edema - Respiratory Respiratory: Present: cough, dyspnea, dyspnea on exertion, wheezing. Absent: hemoptysis - Gastrointestinal Gastrointestinal: Absent: diarrhea, nausea, vomiting - Genitourinary Genitourinary: Absent: dysuria - Musculoskeletal Musculoskeletal: Absent: joint swelling, myalgias - Neurological Neurological: Absent: confusion, focal weakness Past Medical History Medical History Updates: HTN. Asthma Surgical History: Cholecystectomy 4 years ago Family History: She is uncertain as she is adopted Family History Updates: Adopted - Social History Smoking status: Current some day smoker Substance use type: does not use Alcohol intake frequency: does not drink Medications Home Medications Medication Instructions Recorded Confirmed Type Albuterol Sulfate [Proair Hfa] 2 puff INH Q4H PRN 11/10/17 11/10/17 History Furosemide [Lasix] 40 mg PO DAILY PRN 11/10/17 11/10/17 History Lisinopril [Prinivil] 5 mg PO DAILY 11/10/17 11/10/17 History Montelukast [Singulair] 10 mg PO DAILY 11/10/17 11/10/17 History Pravastatin [Pravachol] 40 mg PO DAILY 11/10/17 11/10/17 History Allergies Allergy/AdvReac Type Severity Reaction Status Date / Time No Known Allergies Allergy Verified 11/10/17 12:45 Exam Vital Signs: Temperature 98.0 F 11/10/17 12:00 Pulse Rate 111 H 11/10/17 14:37 Respiratory Rate 18 11/10/17 14:54 Blood Pressure 136/68 11/10/17 13:38 Pulse Oximetry 92 11/10/17 14:54 - Constitutional Present: well nourished, well developed - Routine HEENT Exam Eye: Present: EOMI ENT: Present: mucous membranes moist, dentition normal - Routine Neck Exam Absent: JVD, lymphadenopathy - Routine Respiratory Exam Present: wheezes, diminished air movement - Routine Cardiovascular Exam Present: S1, S2, tachycardia. Absent: murmur - Routine Abdominal Exam Present: soft, normoactive bowel sounds, non distended. Absent: tenderness - Routine Extremities Exam Present: normal capillary refill - Routine Skin Exam Present: dry, warm - Routine Neurological Exam Present: alert, oriented X3, CN II-XII intact - Routine Psychiatric Exam Present: normal affect Results - Labs CBC & Chem 7: 11/10/17 12:22 11/10/17 12:22 Assessment and Plan (1) Dependence on supplemental oxygen Current visit: Yes Status: Acute (2) Acute exacerbation of chronic obstructive airways disease Current visit: Yes Status: Acute Assessment and Plan: Patient has been trying to manage home independently and despite her appropriate use medicines has worsening condition. She was brought into the emergency room given a steroid injection and 3 [id number] nebulized breathing treatments. She is feeling somewhat better but is still significantly more tighter baseline and is more comfortable on higher oxygen at this time. As of now I will bring her in for repeat breathing treatments, TID steroids and continued wean down her oxygen. DISPOSITION: observation status for 24 hours - Time spent with patient Time with patient PN: 35 minutes - Physician Narrative Narrative: Date: 11/10/17 Time: 1537 Hospital Course Summary Disclaimer: The visit summary below is not to be considered part of the above Progress Note.
[2017-11-10 15:48] VITALS: BMI 24.0
[2017-11-10] MEDS: PrednisoLONE 15mg/5ml ORAL LIQUID PO SCH (17:24)
[2017-11-10] MEDS ORDERED: ALBUTEROL 2.5mg/3ml (0.083%) NEB AEROSOL PRN (20:31)
[2017-11-11] MEDS: ALBUTEROL/IPRATROPIUM 2.5mg-0.5mg/3ml NEB AEROSOL SCH ×2 (01:10→07:04)
[2017-11-11 01:17] VITALS: RESP 18
[2017-11-11] MEDS: PrednisoLONE 15mg/5ml ORAL LIQUID PO SCH ×2 (05:50→10:54)
[2017-11-11 07:41] VITALS: BP 143/71
[2017-11-11 08:55] VITALS: TEMP 97.3
[2017-11-11 10:58] VITALS: PULSE 99
--- NOTE | 2017-11-11 11:25 | Discharge Summary ---
Discharge Information Date of admission: 11/10/17 14:38 Anticipated date of discharge: 11/11/17 Attending Physician: Antonio Carrion MD Primary care physician: Anna Morrison, DO - Discharge Diagnosis (1) Acute exacerbation of chronic obstructive airways disease Status: Acute (2) Dependence on supplemental oxygen Status: Acute - Radiology Radiology: Date of Exam: 11/10/17 PROCEDURE: CHEST 2-VIEWS UPRIGHT (PA & LAT) Findings: The lungs are stable in appearance without new focal airspace consolidation. Hyperinflation and emphysema. There is no pleural effusion or pneumothorax. The heart size, pulmonary vascularity and mediastinal contours are unchanged. IMPRESSION: Stable appearance of the chest without acute cardiopulmonary disease. History of Present Illness HPI: This is 77-year-old woman who maintains on 2 L at home and is on monotherapy of albuterol. For the last 5 or 6 days she has had increased shortness of breath with some clear productive sputum but no no fevers chills nausea vomiting or malaise. She turned her oxygen up to 4 or 5 L. She just feels that her airway has gotten more and more restrictive. She's been using her breathing treatments more than the every 4 hours that she is supposed to but says that she only gets relief for about 30 minutes using them. She has refused to come in for several days until now. Objective Vital signs: Temperature 97.3 F 11/11/17 08:55 Pulse Rate 99 11/11/17 10:56 Respiratory Rate 18 11/11/17 07:04 Blood Pressure 143/71 H 11/11/17 07:00 Pulse Oximetry 92 11/11/17 10:56 Height/Weight/BMI: Height 1.78 m Weight 76.1 kg Body Mass Index 24.0 - Constitutional Present: no acute distress, well nourished, well developed - Routine HEENT Exam Head: Present: normocephalic Eye: Absent: conjunctival icterus, scleral injection ENT: Present: mucous membranes moist, oropharynx clear - Routine Respiratory Exam Present: wheezes (scattered; faint) - Routine Cardiovascular Exam Present: RRR, S1, S2 - Routine Abdominal Exam Present: soft, normoactive bowel sounds - Routine Extremities Exam Present: no edema - Routine Skin Exam Present: intact, dry, warm - Routine Neurological Exam Present: alert, oriented X3, normal speech - Routine Psychiatric Exam Present: normal affect, normal thought process, cooperative Hospital Course This is a general summary of the patient's hospital course. For more details refer to the complete medical record. Hospital course: Isis was admitted to observation status on 11/10/17. Influenza swabs were negative. WBC was slightly elevated at 11.3. BMP was unremarkable. She was given IV steroids and nebulized treatments of DuoNeb. On the day of admission, she was requiring up to 6L oxygen -- her baseline is 3L. By the next day, she was back to her baseline 3L of oxygen and felt quite well. She felt safe to go home, and has oxygen/tubing at home already. She will f/u with Dr. Escobedo in oupt setting. Rx for Anoro was provided as a long acting beta2 agonist, in conjunction with her rescue inhaler. Rx for prednisone taper also provided. Recommend f/u with Dr. Morrison in 1 week. Pt verbalized an understanding and was dc 'd home in stable condition. Addendum hospitalist note: Seen and examined patient on same day as the above note. Agree with history, physical, assessment and plan. Comprehensive physical findings correlate to the above note. Subjective: reports breathing has improved significantly and she feels she is back to her baseline. Objective: no apparent distress, conversant and pleasant with no increased after breathing, trace pulmonary resonance of COPD but good air entry, S1 S2 no adventitious murmurs rubs or gallops. No lower extremity edema Assessment and plan: discharge with follow up to Dr. Escobedo. Encourage patient to use longer acting medication as I believe that her monotherapy rescue inhalers insufficient for COPD. She does have extended periods where she uses nothing but is probably not recognize that she is still suboptimal. Documented on [employer] speech to text. Efforts to correct speech recognition errors performed, but variation may exist Discharge Plan - Discharge Disposition Discharge Date: 11/11/17 Disposition: 01 Discharged Home, Self-Care *Condition: Improved Reason For Visit (Visit label in EMR): Acute COPD exacerbation - Discharge Medications *Discharge Medications: New predniSONE [Prednisone] 20 mg PO DAILY #15 tab Umeclidinium Brm/Vilanterol Tr [Anoro Ellipta 62.5-25 Mcg INH] 1 puff IH DAILY #1 blst.w.dev Continue Lisinopril [Prinivil] 5 mg PO DAILY Montelukast [Singulair] 10 mg PO DAILY Albuterol Sulfate [Proair Hfa] 2 puff INH Q4H PRN PRN Reason: Prn Orders Pravastatin [Pravachol] 40 mg PO DAILY Furosemide [Lasix] 40 mg PO DAILY PRN PRN Reason: Prn Orders - Discharge Packet/Instructions *Diet: Regular *Activity: Wear oxygen as directed. No restrictions to activity otherwise. *Pain Management/Treatment: Tylenol if needed. *Wound Care: N/A Additional Instructions: New Rx for Anoro, which is a long-acting inhaler to help manage COPD. Take 1 inhalation every day. *Expected Signs/Symptoms: You might feel tired from your night in the hospital. You might have some intermittent shortness of breath for the next several days. *Notify Physician if: Increased shortness of breath, chest pain, fever, productive cough, vomiting or diarrhea, signs of thrush, or any new concerns. *During Business Hours Contact: Dr. Morrison' office. *After Business Hours Contact: On-call provider for Dr. Morrison. *Pending Lab/Results: No Pending Lab - Referrals/Follow Up *Referrals/Follow Up: Kenroy Escobedo MD [Physician] - (APPOINTMENT ON 11/24 CHECK IN AT 1030 FOR 1040 APPOINTMENT BRING INSURANCE CARDS.) Anna Morrison DO [Family Provider] - 1 Week (APPOINTMENT ON 11/18 CHECK IN TIME 0845, APPOINTMENT AT 9.) - Patient Handouts Patient Handouts: COPD (Chronic Obstructive Pulmonary Disease) (GEN) - Dismissal Complete Discharge Instructions are:: Complete Physician Narrative - Narrative Attestation Narrative: Date: 11/11/17 Time: 2355
[2017-11-11 11:35] VITALS: O2SAT 84
== END 2017-11-11 13:08 | disposition home or self-care (01) ==
LOC: MED 11:52 → ED 11:52 → MED 15:30
PROVIDERS: ADMIT Family Medicine; ATTEND Family Medicine